=== PATIENT | female | born 1970 | race Caucasian/White ===

== ENCOUNTER 2021-10-30 18:17 | Observation (INO) | payer SELFPAY ==
[2021-10-30 19:10] LABS: #Eosinphils 0.2 thou/uL (0.0-0.7); #Monocytes 0.5 thou/uL (0.11-0.59); #Neutrophils 3.8 thou/uL (1.40-6.50); %Basophils 0.3 % (0.0-1.0); %Lymphocytes 40.1 % (21.0-51.0); %Monocytes 6.3 % (0.0-10.0); %Neutrophils 50.2 % (42.0-75.0); Hemoglobin 13.6 g/dL (12.0-16.0); Mean Corpuscular HGB CONC 34.4 g/dL (32.0-36.0); Mean Corpuscular Hemoglobin 29.1 pg (27.0-31.0); Mean Corpuscular Volume 84.6 fL (78.0-98.0); Mean Platelet Volume 8.1 fL (7.4-10.4); Platelet Count 253 thou/uL (130-400); RBC Distribution Width 12.7 % (11.5-14.5); Red Blood Cell (RBC) Count 4.68 mill/uL (4.20-5.40); White Blood Cell (WBC) Count 7.5 thou/uL (4.8-10.8)
[2021-10-30] MEDS ORDERED: Aspirin 325 MG TAB ONE (19:10)
[2021-10-30 19:28] LABS: ALT (SGPT) 18 U/L (8-55); AST (SGOT) 17 U/L (5-34); Albumin 4.1 g/dL (3.5-5.0); Alkaline Phosphatase 86 U/L (40-110); Anion Gap 17 mmol/L (10-20); BUN (Urea Nitrogen) 12 mg/dL (9.8-20.1); Bilirubin, Total 0.6 mg/dL (0.2-1.2); CK (CPK) 74 U/L (29-168); Calc. Creatinine Clearance 0 mL/min (70-130); Calcium 9.1 mg/dL (7.8-10.44); Carbon Dioxide 27 mmol/L (22-29); Estimated GFR 94; Globulin 3.1 g/dL (2.4-3.5); Glucose 229 mg/dL (70-105); Lipase 69 U/L (8-78); Protein, Total 7.2 g/dL (6.0-8.3)
[2021-10-30 19:44] LABS: Chloride 98 mmol/L (98-107); Potassium 2.6 mmol/L (3.5-5.1); Sodium 139 mmol/L (136-145)
[2021-10-30] MEDS ORDERED: Potassium Chloride 20 MEQ TAB ONE (19:48)
[2021-10-30] MEDS ORDERED: Nitroglycerin 2% Ointment 1 INCH/1 GM Packet ONE (20:06)
[2021-10-30] MEDS ORDERED: Nitroglycerin 0.4 MG TAB (25 Tab Bottle) SL PRN (21:01)
[2021-10-30] MEDS ORDERED: Ondansetron PF 4 MG/2 ML Vial IVP PRN (21:01)
[2021-10-30] MEDS ORDERED: ALPRAZolam 0.5 MG TAB PO SCH (21:15)
[2021-10-30 22:21] LABS: Troponin I Less than 0.010 ng/mL (< 0.028)
[2021-10-30 22:31] VITALS: BMI 45.2
[2021-10-30 22:49] LABS: Magnesium 1.7 mg/dL (1.6-2.6)
[2021-10-30] MEDS: Losartan 25 MG TAB PO SCH (22:52)
[2021-10-30] MEDS: Atorvastatin Calcium 20 MG TAB PO SCH (22:54)
[2021-10-30] MEDS: Amlodipine 10 MG TAB PO SCH (22:54)
[2021-10-30] MEDS ORDERED: hydrALAZINE 20 MG/ML VIAL SLOW IVP PRN (23:12)
[2021-10-30] MEDS ORDERED: HumaLOG 300 UNITS/3 ML VIAL SC PRN ×2 (23:29)
[2021-10-30] MEDS ORDERED: Dextrose 5% in Water 1,000 ML IV PRN (23:29)
[2021-10-30] MEDS ORDERED: Dextrose 50% Abboject 50 ML SYRINGE SLOW IVP PRN (23:29)
[2021-10-30] MEDS ORDERED: Methimazole 5 MG TAB PO SCH (23:30)
[2021-10-30] MEDS ORDERED: Electrolyte Replacement Protocol 1 EACH FS SCH (23:30)
[2021-10-30] MEDS ORDERED: Potassium Chloride 20 MEQ in Premix Bag 1 BAG IVPB SCH (23:30)
[2021-10-31] MEDS: Potassium Chloride 40 MEQ in Sodium Chloride 0.9% 500 ML IVPB SCH ×2 (00:45→04:38)
[2021-10-31] MEDS ORDERED: Potassium Chloride 20 MEQ in Sodium Chloride 0.9% 250 ML 250 ML IVPB SCH (01:00)
[2021-10-31 01:19] LABS: Troponin I Less than 0.010 ng/mL (< 0.028)
[2021-10-31 03:21] LABS: Free T4 (Free Thyroxine) 1.04 ng/dL (0.70-1.48)
[2021-10-31] MEDS ORDERED: Potassium Chloride 20 MEQ in Premix Bag 1 BAG IVPB SCH (04:00)
[2021-10-31] MEDS: Acetaminophen 325 MG TAB PO PRN ×2 (04:38→14:37)
[2021-10-31 05:01] LABS: #Eosinphils 0.3 thou/uL (0.0-0.7); #Lymphocytes 2.9 thou/uL (1.20-3.40); #Monocytes 0.5 thou/uL (0.11-0.59); #Neutrophils 5.8 thou/uL (1.40-6.50); %Basophils 0.3 % (0.0-1.0); %Lymphocytes 30.6 % (21.0-51.0); %Monocytes 5.1 % (0.0-10.0); Hemoglobin 12.8 g/dL (12.0-16.0); Mean Corpuscular HGB CONC 33.6 g/dL (32.0-36.0); Mean Corpuscular Hemoglobin 28.6 pg (27.0-31.0); Mean Corpuscular Volume 85.2 fL (78.0-98.0); Mean Platelet Volume 7.8 fL (7.4-10.4); Platelet Count 301 thou/uL (130-400); RBC Distribution Width 12.7 % (11.5-14.5); Red Blood Cell (RBC) Count 4.47 mill/uL (4.20-5.40); White Blood Cell (WBC) Count 9.5 thou/uL (4.8-10.8)
[2021-10-31 05:10] LABS: Hemoglobin A1c 7.8 % (4.0-6.0)
[2021-10-31 05:36] LABS: Chloride 100 mmol/L (98-107); Potassium 3.9 mmol/L (3.5-5.1); Sodium 140 mmol/L (136-145)
[2021-10-31 05:38] LABS: Calcium 8.9 mg/dL (7.8-10.44); Glucose 194 mg/dL (70-105)
[2021-10-31 05:39] LABS: Anion Gap 21 mmol/L (10-20); Carbon Dioxide 23 mmol/L (22-29); Triglycerides 144 mg/dL (Less than 150)
[2021-10-31 05:41] LABS: BUN (Urea Nitrogen) 12 mg/dL (9.8-20.1); Calc. Creatinine Clearance 158 mL/min (70-130); Estimated GFR 94
[2021-10-31 05:43] LABS: Cardiac Risk 3.4 (Less than 4.5); Cholesterol 139 mg/dl (< 200 Desired); HDL Cholesterol 41 mg/dL (>60 Neg Risk); LDL Cholesterol, Calculated 69 mg/dL; Magnesium 1.8 mg/dL (1.6-2.6)
[2021-10-31] MEDS ORDERED: Magnesium 2 GM/50 ML(in water) 2 GM in Premix Bag 1 BAG IVPB SCH (08:00)
[2021-10-31] MEDS ORDERED: Enoxaparin Sodium 40 MG/0.4 ML SYRINGE SC SCH (09:00)
[2021-10-31] MEDS ORDERED: FLUoxetine HCl 20 MG CAP PO SCH (09:00)
[2021-10-31 16:08] VITALS: TEMP 98
[2021-10-31] MEDS: Losartan 25 MG TAB PO SCH (20:21)
[2021-10-31] MEDS: Amlodipine 10 MG TAB PO SCH (20:21)
[2021-10-31] MEDS: Atorvastatin Calcium 20 MG TAB PO SCH (20:21)
[2021-10-31 20:22] VITALS: BP 137/71
[2021-10-31] MEDS ORDERED: Methimazole 5 MG TAB PO SCH (21:00)
== END 2021-10-31 20:43 | disposition home or self-care (01) ==
LOC: ERS 18:17 → 2SW 20:35
PROVIDERS: ADMIT Family Medicine; ATTEND Family Medicine
DX: R07.89 Other chest pain (principal); E87.6 Hypokalemia; I10 Essential (primary) hypertension; R73.03 Prediabetes; E05.90 Thyrotoxicosis, unspecified without thyrotoxic crisis or storm; E78.5 Hyperlipidemia, unspecified; K21.9 Gastro-esophageal reflux disease without esophagitis; Z87.891 Personal history of nicotine dependence; Z79.84 Long term (current) use of oral hypoglycemic drugs; Z79.899 Other long term (current) drug therapy; Z20.822 Contact with and (suspected) exposure to COVID-19
CPT/HCPCS: 36415; 36416; 71045; 78452; 80048; 80053; 80061; 82550; 83036; 83690; 83735; 84439; 84443; 84481; 84484; 85025; 93005; 93017; 94760; 96372; 96374; A9500; G0378; J0153; J1650; J3475; J3480; J7030; U0003; U0005

== ENCOUNTER 2023-03-07 22:22 | Observation (INO) | payer BC, SELFPAY ==
[2023-03-07 23:42] VITALS: BMI 39.9
[2023-03-08] MEDS ORDERED: hydrALAZINE 20 MG/ML VIAL SLOW IVP PRN (00:17)
[2023-03-08] MEDS ORDERED: Ondansetron PF 4 MG/2 ML Vial IVP PRN (03:10)
[2023-03-08] MEDS ORDERED: Ondansetron ODT 4 MG TAB PO PRN (03:10)
[2023-03-08] MEDS ORDERED: Acetaminophen 325 MG TAB PO PRN (03:10)
[2023-03-08] MEDS ORDERED: Acetaminophen 650 MG Suppository PR PRN (03:10)
[2023-03-08 05:18] LABS: #Basophils 0.1 thou/uL (0.0-0.2); #Eosinphils 0.4 thou/uL (0.0-0.7); #Monocytes 0.7 thou/uL (0.11-0.59); #Neutrophils 4.9 thou/uL (1.40-6.50); %Basophils 0.6 % (0.0-1.0); %Eosinophils 3.7 % (0.0-10.0); %Lymphocytes 37.8 % (21.0-51.0); %Neutrophils 50.6 % (42.0-75.0); Hematocrit 37.2 % (36.0-47.0); Hemoglobin 11.8 g/dL (12.0-16.0); Mean Corpuscular HGB CONC 31.7 g/dL (32.0-36.0); Mean Corpuscular Hemoglobin 26.5 pg (27.0-31.0); Mean Corpuscular Volume 83.4 fl (78.0-98.0); Mean Platelet Volume 10.7 fL (7.4-10.4); Platelet Count 302 10x3/uL (130-400); Red Blood Cell (RBC) Count 4.46 mill/uL (4.20-5.40); White Blood Cell (WBC) Count 9.7 10x3/uL (4.8-10.8)
[2023-03-08 05:26] LABS: Hemoglobin A1c 6.4 % (4.0-6.0)
[2023-03-08 05:48] LABS: Anion Gap 9 mmol/L (10-20); BUN (Urea Nitrogen) 11 mg/dL (9.8-20.1); Calc. Creatinine Clearance 164 mL/min (70-130); Calcium 8.6 mg/dL (7.8-10.44); Carbon Dioxide 28 mmol/L (22-29); Cardiac Risk 3.5 (Less than 4.5); Chloride 104 mmol/L (98-107); Cholesterol 181 mg/dl (< 200 Desired); Estimated GFR 105; Glucose 128 mg/dL (70-105); HDL Cholesterol 51 mg/dL (>60 Neg Risk); LDL Cholesterol, Calculated 101 mg/dL; Sodium 138 mmol/L (136-145); Triglycerides 146 mg/dL (Less than 150)
[2023-03-08] MEDS ORDERED: Oxybutynin 5 MG TAB PO PRN (08:23)
[2023-03-08] MEDS ORDERED: busPIRone HCl 10 MG TAB PO PRN (08:23)
[2023-03-08] MEDS ORDERED: VILAZODONE HCL 10 MG PO SCH (09:00)
[2023-03-08] MEDS ORDERED: FLU VACC QS2023-24(6MOS UP)/PF 60 MCG/0.5 ML SYRINGE IM ONE (09:00)
[2023-03-08] MEDS ORDERED: Aspirin 81 mg Enteric Coated Tablet PO SCH (09:00)
[2023-03-08] MEDS ORDERED: Amlodipine 10 MG TAB PO SCH ×2 (11:20→11:30)
[2023-03-08] MEDS ORDERED: Potassium Bicarbonate/Cit Ac 20 MEQ TAB PO SCH (12:15)
[2023-03-08] MEDS ORDERED: Potassium Chloride 20 MEQ TAB PO SCH (12:15)
[2023-03-08 12:21] VITALS: BP 141/81; TEMP 98.5
[2023-03-08] MEDS ORDERED: Atorvastatin Calcium 40 MG TAB PO SCH (21:00)
[2023-03-08] MEDS ORDERED: OXcarbazepine 300 MG TAB PO SCH (21:00)
[2023-03-08] MEDS ORDERED: Lisinopril 10 MG TAB PO SCH (21:00)
[2023-03-09] MEDS ORDERED: Amlodipine 10 MG TAB PO SCH (09:00)
[2023-03-09] MEDS ORDERED: Atorvastatin Calcium 20 MG TAB PO SCH (09:00)
== END 2023-03-08 16:30 | disposition home or self-care (01) ==
LOC: 2SE 23:35
PROVIDERS: ADMIT Student in an Organized Health Care Education/Training Program; ATTEND Student in an Organized Health Care Education/Training Program
DX: R20.2 Paresthesia of skin (principal); E87.6 Hypokalemia; I10 Essential (primary) hypertension; E04.1 Nontoxic single thyroid nodule; M50.30 Other cervical disc degeneration, unspecified cervical region; F41.9 Anxiety disorder, unspecified; E78.5 Hyperlipidemia, unspecified; E05.90 Thyrotoxicosis, unspecified without thyrotoxic crisis or storm; R73.03 Prediabetes; Z79.899 Other long term (current) drug therapy; Z90.710 Acquired absence of both cervix and uterus
CPT/HCPCS: 36415; 70551; 72141; 80048; 80061; 83036; 85025; G0378

== ENCOUNTER → 2024-03-12 | Day surgery (SDC) | payer OTHER ==
[~2024-03-12] MED LIST: Lidocaine 1% PF 5 ML VIAL ONE
== END ==
LOC: ULT 12:22
PROVIDERS: ATTEND Specialist
PROC: 0G9K3ZX Drainage of Thyroid Gland, Percutaneous Approach, Diagnostic (ICD-10-PCS; principal; 2024-03-12)
DX: E04.2 Nontoxic multinodular goiter (principal); J34.2 Deviated nasal septum; I10 Essential (primary) hypertension; E11.9 Type 2 diabetes mellitus without complications; E78.00 Pure hypercholesterolemia, unspecified; Z90.710 Acquired absence of both cervix and uterus; Z79.84 Long term (current) use of oral hypoglycemic drugs; Z79.899 Other long term (current) drug therapy
CPT/HCPCS: 10005; 10006; 88173; 88305